=== PATIENT | female | born 1960 | race Caucasian/White ===

== ENCOUNTER 2021-01-19 07:10 | Day surgery (SDC) | payer OTHER, SELFPAY ==
--- NOTE | 2021-01-15 13:38 | P.CONAN_ITS ---
Documented by User: Angelique Garcia 01/15/21 13:39 HPI - Anesthesia Eval Consult details Narrative: 60yo F for Upper Endoscopy COUNT INCLUDES THE [facility] Past Medical History Medical History Barretts esophagus Complex regional pain syndrome i of right upper limb GERD (gastroesophageal reflux disease) Hiatal hernia RSD (reflex sympathetic dystrophy) Surgical History Surgical History History of appendectomy History of foot surgery History of surgery on left wrist Hx of section Hx of colonoscopy Hx of esophagogastroduodenoscopy Social History Social History Smoking Status: Former smoker Use of substances other than those prescribed or required for medical reasons: No Have you been hit, kicked, punched, or otherwise hurt by someone within the past year? If so, by whom?: No Advance Directives: No Advance Directives Information Provided: No Advance Directives on File: No Meds Allergies Allergy/AdvReac Type Severity Reaction Status Date / Time No Known Allergies Allergy Unverified 01/14/21 11:14 Home Medications Medication Instructions Recorded Confirmed Last Taken Type ascorbic acid (vitamin C) [Vitamin 500 mg PO DAILY 01/14/21 01/14/21 Unknown History C] glucosamine sulfate [Glucosamine] 500 mg PO DAILY 01/14/21 01/14/21 Unknown History ibuprofen 600 mg PO BEDTIME 01/14/21 01/14/21 Unknown History omeprazole 1 cap PO DAILY 01/14/21 01/14/21 01/19/21 History Exam Exam Date and Time: January 15, 2021 147 Assessment and Plan Assessment Anesthesia Assessment: Chart Reviewed Documented by User: Damian De Anda 01/19/21 08:08 COUNT INCLUDES THE [facility] Past Medical History Medical History Barretts esophagus Complex regional pain syndrome i of right upper limb GERD (gastroesophageal reflux disease) Hiatal hernia RSD (reflex sympathetic dystrophy) Surgical History Surgical History History of appendectomy History of foot surgery History of surgery on left wrist Hx of section Hx of colonoscopy Hx of esophagogastroduodenoscopy Social History Social History Smoking Status: Former smoker Use of substances other than those prescribed or required for medical reasons: No Have you been hit, kicked, punched, or otherwise hurt by someone within the past year? If so, by whom?: No Advance Directives: No Advance Directives Information Provided: No Advance Directives on File: No Meds Allergies Allergy/AdvReac Type Severity Reaction Status Date / Time No Known Allergies Allergy Unverified 01/14/21 11:14 Home Medications Medication Instructions Recorded Confirmed Last Taken Type ascorbic acid (vitamin C) [Vitamin 500 mg PO DAILY 01/14/21 01/14/21 Unknown History C] glucosamine sulfate [Glucosamine] 500 mg PO DAILY 01/14/21 01/14/21 Unknown H istory ibuprofen 600 mg PO BEDTIME 01/14/21 01/14/21 Unknown History omeprazole 1 cap PO DAILY 01/14/21 01/14/21 01/19/21 History Exam Airway Mallampati Class: II TM Dist: >3cm Neck ROM: Full Loose/Missing/Broken Teeth: No Heart: [id number] Lungs: cta b/l Assessment and Plan Assessment Anesthesia Assessment: Anesthesia Plan Discussed, PAT Visit and Chart Reviewed Final Anesthetic Review NPO: Yes ASA Class: II Final Preanesthetic Review: No Changes in Pt Med Stat, Meds/Allgs Chart Reviewed and Consent Obtained/Reviewed Patient Risk: Low Procedure Risk: Low Assessment/Block/Sedation in SS: Assess/Block/Sedation-SS Anesthetic Plan Anesthetic Plan: MAC: and Agree w/ Assess. and Plan Disposition: Standard PACU
[2021-01-19 06:59] VITALS: BMI 24.7
[2021-01-19 07:21] VITALS: BP 136/70; PULSE 48; RESP 18; TEMP 36.1; O2SAT 98
[2021-01-19] MEDS: Lactated Ringers 1,000 ML 100 ML IVCONT (08:03)
--- NOTE | 2021-01-19 09:01 | PM.OP ---
Brief Operative Note Date of Service: 01/19/21 Pre-op diagnosis: Zacarias's esophagus Post-op diagnosis: other (Hiatal hernia, Duodenal polyp) Surgeon: Orestes Berger Anesthesia: MAC Was an Director Educational Radio used for this Procedure?: No Estimated blood loss (mL): 3.0 Pathology: other (A. Duodenal bulb polyp B. EG Junction at 35cm) Condition: stable Disposition: PACU
[2021-01-19 09:10] VITALS: BP 100/61; PULSE 57; RESP 16; TEMP 36.3; O2SAT 97
[2021-01-19 09:25] VITALS: BP 124/70; PULSE 53; RESP 16; TEMP 36.3; O2SAT 99
--- NOTE | 2021-01-19 10:59 | OP_ITS ---
SURGEON: Orestes Berger MD INDICATIONS: The patient presents for evaluation of gastroesophageal reflux and history of Zacarias's esophagus. Full consent has been obtained from her for this, including risks of bleeding and perforation. PREOPERATIVE DIAGNOSIS: History of Zacarias's esophagus. POSTOPERATIVE DIAGNOSIS: PROCEDURE PERFORMED: Esophagogastroduodenoscopy with biopsies. ESTIMATED BLOOD LOSS: COMPLICATIONS: ANESTHESIA: Monitored anesthesia care. ASSISTANTS: SPECIMENS: POSTOPERATIVE DIAGNOSES: History of Zacarias's esophagus, hiatal hernia, duodenal bulb polyp. DESCRIPTION OF PROCEDURE: The patient was placed in the left lateral decubitus position. The Olympus video gastroscope was passed in the posterior oropharynx and upper esophagus under direct vision. The scope was passed slowly into the distal esophagus. The gastroesophageal junction appeared at 35 cm. There was a very minimal irregularity consistent with reflux and possibly small areas of Zacarias's mucosa. There was no esophagitis nor any lesions. The scope entered into the stomach. There was a small to moderate sized hiatal hernia. The hiatal hernia mucosa appeared normal. The scope was advanced to pylorus and duodenum was cannulated to the descending portion. The duodenum including the bulb was carefully inspected. In the duodenal bulb on the posterior wall, was what appeared to be a flat, but raised approximately 15 mm polypoid area that I suspect represented either gastric heterotopia or Pina's gland hypertrophy. There was no ulceration. Biopsies were obtained. The scope was withdrawn back into the stomach. The gastric antrum and body appeared normal with good peristalsis. Scope was retroflexed visualizing the proximal stomach carefully, which appeared normal, without any sign of mass or ulceration. The scope was straightened and withdrawn back into the esophagus. I obtained biopsies at the EG junction at 35 cm. Proximal to this, the esophageal mucosa appeared normal. The scope was withdrawn from the patient. She tolerated the procedure well and was returned to the recovery area in stable condition. IMPRESSION: 1. Hiatal hernia, history of Zacarias's esophagus. 2. Duodenal bulb polyp. PLAN: The results of the biopsies will be checked. She was advised to continue daily omeprazole. She was advised not to use any aspirin and NSAIDs for 1 week. MD SAMANTHA Reaves/JHONATHAN / [id number]
== END 2021-01-19 10:05 | disposition home or self-care (01) ==
PROVIDERS: PCP Internal Medicine; Visit Provider Internal Medicine
PROC: 0DJ08ZZ Inspection of Upper Intestinal Tract, Via Natural or Artificial Opening Endoscopic (ICD-10-PCS; CPT 43235; principal; 2021-01-19 08:20)
DX: K21.9 Gastro-esophageal reflux disease without esophagitis (principal); K22.70 Barrett's esophagus without dysplasia; K31.7 Polyp of stomach and duodenum; K44.9 Diaphragmatic hernia without obstruction or gangrene; G90.511 Complex regional pain syndrome I of right upper limb; Z87.891 Personal history of nicotine dependence; Z79.899 Other long term (current) drug therapy
CPT/HCPCS: 43239; 88305; J3010

== ENCOUNTER 2021-01-20 08:00 | Outpatient (REF) | payer OTHER, SELFPAY ==
--- NOTE | ~2021-01-20 | US_ITS ---
EXAMINATION: US THYROID CLINICAL INFORMATION: Nontoxic single thyroid nodule. COMPARISON: Ultrasound soft tissue head/neck thyroid dated 02/19/2019. TECHNIQUE: Linear transducer grayscale and color Doppler examination with attention to the region of the thyroid. FINDINGS: SIZE: Measurements of the thyroid lobes and nodules are given in sagittal, anteroposterior and transverse dimensions respectively. Right Thyroid Lobe: 4.2 x 1.7 x 1.6 cm, volume 5.7 mL. Previously 4.1 x 1.7 x 1.7 cm, volume 6.0 mL. Parenchyma: The gland echotexture is homogeneous. Thyroid vascularity is increased. Left Thyroid Lobe: 3.4 x 1.4 x 1.3 cm, volume 3.3 mL. Previously 3.7 x 1.5 x 1.4 cm, volume 4.1 mL. Parenchyma: The gland echotexture is homogeneous. Thyroid vascularity is increased. Isthmus: 0.2 cm in maximum AP dimension. Previously 0.3 cm. Estimated total number of nodules greater than or equal to 1 cm: 1. Case Liner nodules are described as follows: 1. Location: Right. Size: 1.0 x 0.8 x 0.8 cm, volume 0.38 mL. Previously: 1.0 x 0.9 x 0.8 cm, volume 0.37 mL. Nodule characteristics: Composition: Solid (2). Echogenicity: Hypoechoic (2). Shape: Not taller than wide (0). Margins: Smooth (0). Echogenic Foci: None (0). ACR TI-RADS total points: 4 ACR TI-RADS category: 4 Significant change in size (>/= 20% in 2 dimensions and minimal increase of 2 mm or 50% or greater increase in volume): None Change in features: None Change in ACR TI-RADS risk category: Not applicable 2. Location: Left. Size: 0.3 x 0.4 x 0.3 cm, volume 0.02 mL. Previously: 0.3 x 0.3 x 0.2 cm, volume 0.01 mL. Nodule characteristics: Composition: Solid (2). Echogenicity: Hyperechoic (1). Shape: Not taller than wide (0). Margins: Smooth (0). Echogenic Foci: None (0). ACR TI-RADS total points: 3 ACR TI-RADS category: 3 Significant change in size (>/= 20% in 2 dimensions and minimal increase of 2 mm or 50% or greater increase in volume): None Change in features: None Change in ACR TI-RADS risk category: Not applicable NODES: No lymphadenopathy is seen in the tissue surrounding the thyroid gland. US/US thyroid IMPRESSION: Bilateral thyroid nodules. The 1 cm larger solid nodule in the right mid pole is stable. Recommend continued follow up. ACR TI-RADS RECOMMENDATION REFERENCE: Ultrasound-guided fine-needle aspiration, followup ultrasound, no further follow up. * TR1 (0 point) and TR 2 (2 points): No FNA or follow up * TR3 (3 points): FNA if more than or equal to 2.5 cm in maximum dimension, followup ultrasound in 1, 3 and 5 years if 1.5 to 2.4 cm in maximum dimension. * TR4 (4-6 points): FNA if more than or equal to 1.5 cm in maximum dimension, followup ultrasound in 1, 2, 3 and 5 years if 1 to 1.4 cm in maximum dimension. * TR5 (more than or equal to 7 points): FNA if more than or equal to 1 cm in maximum dimension, followup ultrasound every year for 5 years if 0.5 to 0.9 cm in maximum dimension. * TR3, TR4 or TR5 nodules that are below the size threshold for follow up receive no follow up.
== END 2021-01-20 08:01 | disposition home or self-care (01) ==
LOC: HO.US 08:00
PROVIDERS: PCP Internal Medicine; Visit Provider Physician Assistant
DX: E04.1 Nontoxic single thyroid nodule (principal)
CPT/HCPCS: 76536

== ENCOUNTER → 2021-03-16 09:29 | Outpatient (BNVA) | payer OTHER, SELFPAY | PROVIDERS: PCP Internal Medicine; Visit Provider Internal Medicine ==

== ENCOUNTER 2021-04-03 07:49 | Outpatient (REF) | payer OTHER, SELFPAY ==
[2021-04-03 09:28] LABS: Albumin Level 4.2 g/dL (3.5-5.0); Calcium 9.4 mg/dL (8.4-10.2); Phosphorus 3.6 mg/dL (2.7-4.5)
[2021-04-03 09:53] LABS: Free T4 (Free Thyroxine) 0.89 ng/dL (0.71-1.85); Thyroid Stimulating Hormone 1.06 uIU/mL (0.32-4.0); Vitamin D 25-OH Total 30.5 ng/mL (>30)
[2021-04-06 15:11] LABS: Calcium (PTHI) 9.1 mg/dL (8.6-10.4); PTHI 38 pg/mL (14-64)
== END 2021-04-03 07:50 | disposition home or self-care (01) ==
LOC: HO.LAB 07:49
PROVIDERS: PCP Internal Medicine; Visit Provider Internal Medicine
DX: E55.9 Vitamin D deficiency, unspecified (principal); E04.2 Nontoxic multinodular goiter
CPT/HCPCS: 36415; 82040; 82306; 82310; 83970; 84100; 84439; 84443

== ENCOUNTER 2021-06-04 07:46 | Outpatient (REF) | payer OTHER, SELFPAY ==
--- NOTE | 2021-06-04 08:50 | PM.OP ---
Brief Operative Note Date of Service: 06/04/21 Pre-op diagnosis: Multinodular Thyroid Procedure: This is doctor Santa Soliz. This is an ultrasound-guided fine-needle aspiration report. Date of Examination: 06/04/2021 Indication: Multinodular Thyroid Porcedure: Procedure was explained to the patient. Alternatives, the risk and benefits were discussed. Written consent was obtained. A time-out was also obtained. After sterile preparation, fine-needle aspiration of a 1.0 cm right mid pole thyroid nodule was performed using direct ultrasound guidance to confirm accurate needle placement. Six aspirations were made using 27 gauge needles. Samples were submitted for cytology. 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 The patient tolerated the procedure well. Aftercare instructions were provided. Impression: Uncomplicated fine needle aspiration biopsy of a 1.0 cm right mid pole thyroid nodule under ultrasound guidance. Surgeon: Santa Soliz, DO Was an Preparing Box Tender used for this Procedure?: No Estimated blood loss (mL): 0
== END 2021-06-04 07:47 | disposition home or self-care (01) ==
LOC: HO.US 07:46
PROVIDERS: Visit Provider Internal Medicine
DX: E04.2 Nontoxic multinodular goiter (principal)
CPT/HCPCS: 10005; 88172; 88173; 88177

== ENCOUNTER → 2021-06-18 09:45 | Outpatient (BNVA) | payer OTHER, SELFPAY | PROVIDERS: PCP Internal Medicine; Visit Provider Internal Medicine ==

== ENCOUNTER 2021-10-09 07:43 | Outpatient (REF) | payer OTHER, SELFPAY ==
--- NOTE | ~2021-10-09 | US_ITS ---
EXAMINATION: US RETROPERITONEAL LIMITED (AORTA) CLINICAL INFORMATION: AAA. COMPARISON: None TECHNIQUE: Callahan-scale, color Doppler and spectral Doppler evaluation of the abdominal aorta. FINDINGS: The aorta is normal. The measurements of the aorta in maximum AP and transverse dimensions respectively are as follows: Proximal: 2.9 x 2.4 cm. Mid: 2.1 x 2.2 cm. Distal: 1.8 x 1.9 cm. PSV: 80.1 cm/s. The measurements of the common iliac arteries in maximum AP and TRV dimensions are as follows: Right Common Iliac Artery: 1.2 x 1.0 cm. Left Common Iliac Artery: 1.2 x 1.1 cm. US/US abdominal aortic aneurysm IMPRESSION: No aneurysmal dilatation of abdominal aorta.
== END 2021-10-09 07:44 | disposition home or self-care (01) ==
LOC: HO.US 07:43
PROVIDERS: Visit Provider Physician Assistant
DX: Z13.6 Encounter for screening for cardiovascular disorders (principal); Z82.49 Family history of ischemic heart disease and other diseases of the circulatory system
CPT/HCPCS: 76706

== ENCOUNTER 2022-06-30 13:49 | Outpatient (REF) | payer OTHER, SELFPAY ==
--- NOTE | ~2022-06-30 | US_ITS ---
EXAMINATION: US THYROID CLINICAL INFORMATION: Nontoxic multinodular goiter. COMPARISON: Ultrasound thyroid 01/20/2021 and 02/19/2019. US-guided thyroid biopsy 06/04/2021. TECHNIQUE: Linear transducer grayscale and color Doppler examination with attention to the region of the thyroid. FINDINGS: SIZE: Measurements of the thyroid lobes and nodules are given in sagittal, anteroposterior and transverse dimensions respectively. Right Thyroid Lobe: 3.7 x 1.5 x 1.6 cm, volume 4.6 mL. Previously 4.2 x 1.7 x 1.6 cm, volume 5.7 mL. Parenchyma: The gland echotexture is homogeneous. Thyroid vascularity is increased. Left Thyroid Lobe: 3.6 x 1.4 x 1.3 cm, volume 3.4 mL. Previously 3.4 x 1.4 x 1.3 cm, volume 3.3 mL. Parenchyma: The gland echotexture is homogeneous. Thyroid vascularity is increased. Isthmus: 0.3 cm in maximum AP dimension. Previously 0.2 cm. Estimated total number of nodules greater than or equal to 1 cm: 1. Solid Tire Tuber Machine Operator nodules are described as follows: 1. Location: Right mid. Size: 1.0 x 0.8 x 0.8 cm, volume 0.3 mL. Previously: 1.0 x 0.8 x 0.8 cm, volume 0.38 mL. Nodule characteristics: Composition: Solid (2). Echogenicity: Isoechoic (1). Shape: Not taller than wide (0). Margins: Smooth (0). Echogenic Foci: Macrocalcifications (1). ACR TI-RADS total points: 4. Previous: 4. ACR TI-RADS category: 4. Previous: 4. Significant change in size (>/= 20% in 2 dimensions and minimal increase of 2 mm or 50% or greater increase in volume): None. Change in features: None. Change in ACR TI-RADS risk category: None. 2. Location: Left inferior. Size: 0.4 x 0.3 x 0.2 cm, volume 0.02 mL. Previously: 0.3 x 0.4 x 0.3 cm, volume 0.02 mL. Nodule characteristics: Composition: Solid (2). Echogenicity: Hyperechoic (1). Shape: Not taller than wide (0). Margins: Smooth (0). Echogenic Foci: None (0). ACR TI-RADS total points: 3. Previous: 3. ACR TI-RADS category: 3. Previous: 3. Significant change in size (>/= 20% in 2 dimensions and minimal increase of 2 mm or 50% or greater increase in volume): None. Change in features: None. Change in ACR TI-RADS risk category: None. 3. Location: Right mid. Size: 0.6 x 0.5 x 0.3 cm, volume 0.04 mL. Previously: Not seen on the previous study. Nodule characteristics: Composition: Solid (2). Echogenicity: Hypoechoic (2). Shape: Not taller than wide (0). Margins: Ill-defined (0). Echogenic Foci: None (0). ACR TI-RADS total points: 4. ACR TI-RADS category: 4. NODES: No lymphadenopathy is seen in the tissue surrounding the thyroid gland. US/US thyroid IMPRESSION: Slightly hypervascular nonenlarged thyroid gland. There are subcentimeter nonsuspicious nodules in both lobes. ACR TI-RADS RECOMMENDATION REFERENCE: Ultrasound-guided fine-needle aspiration, followup ultrasound, no further follow up. * TR1 (0 point) and TR 2 (2 points): No FNA or follow up. * TR3 (3 points): FNA if more than or equal to 2.5 cm in maximum dimension, followup ultrasound in 1, 3 and 5 years if 1.5 to 2.4 cm in maximum dimension. * TR4 (4-6 points): FNA if more than or equal to 1.5 cm in maximum dimension, followup ultrasound in 1, 2, 3 and 5 years if 1 to 1.4 cm in maximum dimension. * TR5 (more than or equal to 7 points): FNA if more than or equal to 1 cm in maximum dimension, followup ultrasound every year for 5 years if 0.5 to 0.9 cm in maximum dimension. * TR3, TR4 or TR5 nodules that are below the size threshold for followup receive no follow up.
== END 2022-06-30 13:50 | disposition home or self-care (01) ==
LOC: HO.US 13:49
PROVIDERS: PCP Internal Medicine; Visit Provider Internal Medicine
DX: E04.2 Nontoxic multinodular goiter (principal)
CPT/HCPCS: 76536

== ENCOUNTER 2022-08-24 15:06 | Outpatient (REF) | payer OTHER, SELFPAY ==
[2022-08-24 17:27] LABS: Free T4 (Free Thyroxine) 0.95 ng/dL (0.71-1.85); Thyroid Stimulating Hormone 1.15 uIU/mL (0.32-4.0)
== END 2022-08-24 15:07 | disposition home or self-care (01) ==
LOC: HO.LAB 15:06
PROVIDERS: PCP Internal Medicine; Visit Provider Internal Medicine
DX: E04.2 Nontoxic multinodular goiter (principal)
CPT/HCPCS: 36415; 84439; 84443

== ENCOUNTER 2023-12-30 15:54 | Outpatient (REF) | payer MEDICARE, OTHER, SELFPAY ==
--- NOTE | ~2023-12-30 | US_ITS ---
EXAMINATION: US THYROID CLINICAL INFORMATION: Nontoxic multinodular goiter. COMPARISON: Ultrasound soft tissue head/neck thyroid dated 06/30/2022 and 01/20/2021. TECHNIQUE: Linear transducer grayscale and color Doppler examination with attention to the region of the thyroid. FINDINGS: SIZE: Measurements of the thyroid lobes and nodules are given in sagittal, anteroposterior and transverse dimensions respectively. Right Thyroid Lobe: 4.2 x 1.5 x 1.6 cm, volume 5.2 mL. Previously 3.7 x 1.5 x 1.6 cm, volume 4.6 mL. Parenchyma: The gland echotexture is homogeneous. Thyroid vascularity is normal. Left Thyroid Lobe: 3.1 x 1.0 x 1.6 cm, volume 2.5 mL. Previously 3.6 x 1.4 x 1.3 cm, volume mL. Parenchyma: The gland echotexture is homogeneous. Thyroid vascularity is normal. Isthmus: 0.2 cm in maximum AP dimension. Previously 0.3 cm. Estimated total number of nodules greater than or equal to 1 cm: 1. Data Entry Machine Operator nodules are described as follows: 1. Location: Right mid. Size: 1.0 x 0.8 x 0.8 cm, volume 0.3 mL. Previously: 1.0 x 0.8 x 0.8 cm, volume 0.3 mL. Nodule characteristics: Composition: Solid (2). Echogenicity: Hypoechoic (2). Shape: Not taller than wide (0). Margins: Smooth (0). Echogenic Foci: Peripheral calcifications (2). ACR TI-RADS total points: 6 Previous: 4 ACR TI-RADS category: 4 Previous: 4 Significant change in size (>/= 20% in 2 dimensions and minimal increase of 2 mm or 50% or greater increase in volume): No Change in features: No Change in ACR TI-RADS risk category: No 2. Location: Right mid. Size: 0.5 x 0.3 x 0.5 cm, volume 0.04 mL. Previously: 0.6 x 0.5 x 0.3 cm, volume 0.04 mL. Nodule characteristics: Composition: Solid (2). Echogenicity: Hypoechoic (2). Shape: Not taller than wide (0). Margins: Ill-defined (0). Echogenic Foci: None (0). ACR TI-RADS total points: 4 Previous: 4 ACR TI-RADS category: 4 Previous: 4 Significant change in size (>/= 20% in 2 dimensions and minimal increase of 2 mm or 50% or greater increase in volume): No Change in features: No Change in ACR TI-RADS risk category: No 3. Location: Left. Size: 0.4 x 0.4 x 0.4 cm, volume 0.03 mL. Previously: 0.4 x 0.3 x 0.2 cm, volume 0.02 mL. Nodule characteristics: Composition: Solid (2). Echogenicity: Isoechoic (1). Shape: Not taller than wide (0). Margins: Smooth (0). Echogenic Foci: None (0). ACR TI-RADS total points: 3 Previous: 3 ACR TI-RADS category: 3 Previous: 3 Significant change in size (>/= 20% in 2 dimensions and minimal increase of 2 mm or 50% or greater increase in volume): No Change in features: No Change in ACR TI-RADS risk category: No NODES: No lymphadenopathy is seen in the tissue surrounding the thyroid gland. US/US thyroid IMPRESSION: Right Midpole 1.0 centimeter TI-RADS 4 nodule. Per ACR criteria given size greater than 1 cm, annual follow-up is recommended at 1, 2, 3, and 5 years from date of baseline exam.. ACR TI-RADS RECOMMENDATION REFERENCE: Ultrasound-guided fine-needle aspiration, follow up ultrasound, no further followup. * TR1 (0 point) and TR2 (2 points): No FNA or followup * TR3 (3 points): FNA if more than or equal to 2.5 cm in maximum dimension, follow up ultrasound in 1, 3 and 5 years if 1.5 to 2.4 cm in maximum dimension. * TR4 (4-6 points): FNA if more than or equal to 1.5 cm in maximum dimension, follow up ultrasound in 1, 2, 3 and 5 years if 1 to 1.4 cm in maximum dimension. * TR5 (more than or equal to 7 points): FNA if more than or equal to 1 cm in maximum dimension, follow up ultrasound every year for 5 years if 0.5 to 0.9 cm in maximum dimension. * TR3, TR4 or TR5 nodules that are below the size threshold for follow up receive no followup.
== END 2023-12-30 15:55 | disposition home or self-care (01) ==
LOC: HO.US 15:54
PROVIDERS: PCP Internal Medicine; Visit Provider Internal Medicine Endocrinology, Diabetes & Metabolism
DX: E04.2 Nontoxic multinodular goiter (principal)
CPT/HCPCS: 76536

== ENCOUNTER 2024-02-07 09:52 | Outpatient (AMB) | payer MEDICARE, OTHER, SELFPAY ==
--- NOTE | 2024-02-07 09:53 | A.OFFVIS_ITS ---
Vital Signs 02/07/24 09:55 Height 5 ft 2 in Weight 125 lb 0.034 oz BMI 22.9 BP 148/90 H Blood Pressure Location Lt brachial Position Sitting Pulse 59 Pulse Source Pulse Oximeter Intake Visit Reasons: F/U NTMNG/JAVIER PATIENT Intake Note: Patient presents today for NTMNG follow up, last seen by Dr. Bender on 08/26/2022. Accounts Collector Required: No Accompanied by: Self / Same As Patient Allergies No Known Allergies Allergy (Verified 02/07/24 09:58) Medication List - Last Reconciled 02/07/24 by Orestes Marino MD ascorbic acid (vitamin C) (Vitamin C) 500 mg PO DAILY glucosamine sulfate (Glucosamine) 500 mg PO DAILY omeprazole 1 cap PO DAILY HPI Comments Details: 63 YO F with no significant PMHx who is seen in F/U for a multinodular thyroid. The patient last saw Dr. Bender on 08/26/2022 Was initially diagnosed with multinodular thyroid in 2017 with thyroid US revealing a solitary R lobe nodule. She underwent FNA biopsy of her RMP 1.0 cm thyroid nodule 06/04/2021, with benign cytology. Currently denies any compressive symptoms. She also denies any symptoms of hyper or hypothyroidism Denies any history of head or neck irradiation. Denies any family history of thyroid cancer. Thyroid US: 06/30/2022 Right Thyroid Lobe: 3.7 x 1.5 x 1.6 cm, volume 4.6 mL. Previously 4.2 x 1.7 x 1.6 cm, volume 5.7 mL. Parenchyma: The gland echotexture is homogeneous. Thyroid vascularity is increased. Left Thyroid Lobe: 3.6 x 1.4 x 1.3 cm, volume 3.4 mL. Previously 3.4 x 1.4 x 1.3 cm, volume 3.3 mL. Parenchyma: The gland echotexture is homogeneous. Thyroid vascularity is increased. Isthmus: 0.3 cm in maximum AP dimension. Previously 0.2 cm. Estimated total number of nodules greater than or equal to 1 cm: 1. Regional Driver nodules are described as follows: 1.? Location: Right mid. ?? ? Size: 1.0 x 0.8 x 0.8 cm, volume 0.3 mL. ?? ? Previously: 1.0 x 0.8 x 0.8 cm, volume 0.38 mL. ?? ? Nodule characteristics: ?? ? Composition: Solid (2). ?? ? Echogenicity: Isoechoic (1). ?? ? Shape: Not taller than wide (0). ?? ? Margins: Smooth (0). ?? ? Echogenic Foci: Macrocalcifications (1). ? ACR TI-RADS total points: 4. Previous: 4. ?? ? ACR TI-RADS category: 4. Previous: 4. ? Significant change in size (>/= 20% in 2 dimensions and minimal increase of 2 mm or 50% or greater increase in volume): None. ?? ? Change in features: None. ?? ? Change in ACR TI-RADS risk category: None. 2.? Location: Left inferior. ?? ? Size: 0.4 x 0.3 x 0.2 cm, volume 0.02 mL. ?? ? Previously: 0.3 x 0.4 x 0.3 cm, volume 0.02 mL. ?? ? Nodule characteristics: ?? ? Composition: Solid (2). ?? ? Echogenicity: Hyperechoic (1). ?? ? Shape: Not taller than wide (0). ?? ? Margins: Smooth (0). ?? ? Echogenic Foci: None (0).? ACR TI-RADS total points: 3. Previous: 3. ?? ? ACR TI-RADS category: 3. Previous: 3. ? Significant change in size (>/= 20% in 2 dimensions and minimal increase of 2 mm or 50% or greater increase in volume): None. ?? ? Change in features: None. ?? ? Change in ACR TI-RADS risk category: None. 3.? Location: Right mid. ?? ? Size: 0.6 x 0.5 x 0.3 cm, volume 0.04 mL. ?? ? Previously: Not seen on the previous study. ?? ? Nodule characteristics: ?? ? Composition: Solid (2). ?? ? Echogenicity: Hypoechoic (2). ?? ? Shape: Not taller than wide (0). ?? ? Margins: Ill-defined (0). ?? ? Echogenic Foci: None (0). ? ACR TI-RADS total points: 4. ?? ? ACR TI-RADS category: 4. NODES: No lymphadenopathy is seen in the tissue surrounding the thyroid gland. Labs: Laboratory Tests 08/24/22 15:20 TSH 1.15 Free T4 0.95 recent thyroid ultrasound showed no change in the size of the nodules [facility] Medical History Barretts esophagus Complex regional pain syndrome i of right upper limb GERD (gastroesophageal reflux disease) Hiatal hernia Multinodular thyroid RSD (reflex sympathetic dystrophy) Vitamin D deficiency Surgical History Hx of section History of appendectomy History of foot surgery History of surgery on left wrist Hx of esophagogastroduodenoscopy Hx of colonoscopy Family History Mother COPD (chronic obstructive pulmonary disease) Lung cancer Father Dementia Social History Alcohol intake: former Patient Tobacco Use Status: Former Tobacco user Tobacco use type: Cigarette Cigarette Packs Per Day: 1 Years Smoked: 20 Physical Exam Vital Signs: Last Vital Signs Pulse 59 02/07/24 09:55 BP 148/90 H 02/07/24 09:55 BMI result Body Mass Index 22.9 Const Other: Thyroid gland is normal size weighs about 15 g. There are no palpable thyroid nodules Assessment & Plan Assessment & Plan (1) Multinodular thyroid: Code(s): E04.2 - Nontoxic multinodular goiter Category: Medical Plan: This 63-year-old white female with a history of multinodular gland with a dominant right thyroid nodule status post FNA with benign cytology. She appears to be clinically euthyroid. Plan is to check TSH and free T4. Assuming above is normal, patient returned to the care of her primary care provider who can check another thyroid ultrasound about 2-3 years time. If there is any significant change in the size or characteristics of the nodules, the patient returned back to endocrinology Orders: Orders Free T4 (Free Thyroxine) Today E04.2 - Nontoxic multinodular goiter Thyroid Stimulating Hormone Today E04.2 - Nontoxic multinodular goiter Coding Level of Care Code Est Pt Level 3 (50614) Diagnoses Multinodular thyroid E04.2
[2024-02-07 09:55] VITALS: BP 148/90; PULSE 59; BMI 22.9
== END 2024-02-07 10:18 | disposition home or self-care (01) ==
PROVIDERS: PCP Internal Medicine; Visit Provider Internal Medicine Endocrinology, Diabetes & Metabolism
DX: E04.2 Nontoxic multinodular goiter (principal)
CPT/HCPCS: 99213

== ENCOUNTER → 2024-02-07 09:52 | Outpatient (BNVA) | payer OTHER, SELFPAY | PROVIDERS: PCP Internal Medicine; Visit Provider Internal Medicine Endocrinology, Diabetes & Metabolism ==

== ENCOUNTER 2024-04-13 09:30 | Day surgery (SDC) | payer MEDICARE, OTHER, SELFPAY ==
[2024-04-11 16:31] VITALS: BMI 22.9
[2024-04-13] MEDS: Lactated Ringers 1,000 ML 100 ML IVCONT (09:34)
[2024-04-13 09:38] VITALS: BMI 22.7
[2024-04-13 09:51] VITALS: BP 130/77; PULSE 55; RESP 18; TEMP 36.6; O2SAT 97
--- NOTE | 2024-04-13 09:55 | HO.ANESPROP2 ---
Documented by User: Angelique Garcia NP 04/12/24 09:31 HPI - Anesthesia Eval Consult details Narrative: 63yo F for Upper Endoscopy PMFSH Active Problems Active Problems: All Active Problems Vitamin D deficiency (Acute) Multinodular thyroid (Acute) Past Medical History Medical History Barretts esophagus Complex regional pain syndrome i of right upper limb GERD (gastroesophageal reflux disease) Hiatal hernia Multinodular thyroid RSD (reflex sympathetic dystrophy) Vitamin D deficiency Family History Family History Mother COPD (chronic obstructive pulmonary disease) Lung cancer Father Dementia Surgical History Surgical History Hx of section History of appendectomy History of foot surgery History of surgery on left wrist Hx of esophagogastroduodenoscopy Hx of colonoscopy Social History Social History Alcohol intake: former Patient Tobacco Use Status: Former Tobacco user Tobacco use type: Cigarette Cigarette Packs Per Day: 1 Years Smoked: 20 Are you DNR?: No Advance Directives: No Advance Directives Information Provided: Yes Nutrition Risks: No Nutritional Risk Meds Allergies Allergy/AdvReac Type Severity Reaction Status Date / Time No Known Allergies Allergy Verified 04/13/24 09:34 Home Medications ?Medication ?Instructions ?Recorded ?Confirmed ?Last Taken ?Type ascorbic acid (vitamin C) 500 mg 500 mg PO DAILY 01/14/21 04/13/24 Unknown History tablet (Vitamin C) glucosamine sulfate 500 mg tablet 500 mg PO DAILY 01/14/21 04/13/24 Unknown History (Glucosamine) omeprazole 20 mg capsule,delayed 1 cap PO DAILY 01/14/21 04/13/24 01/19/21 History release Exam Height,Weight and Vital Signs: Height 5 ft 2 in Weight 56.699 kg Assessment and Plan Assessment Anesthesia Assessment: Chart Reviewed Documented by User: Paige Saravia DO 04/13/24 09:58 PMF Past Medical History Medical History Barretts esophagus Complex regional pain syndrome i of right upper limb GERD (gastroesophageal reflux disease) Hiatal hernia Multinodular thyroid RSD (reflex sympathetic dystrophy) Vitamin D deficiency Family History Family History Mother COPD (chronic obstructive pulmonary disease) Lung cancer Father Dementia Family history of problems with anesthesia: No Surgical History Surgical History Hx of section History of appendectomy History of foot surgery History of surgery on left wrist Hx of esophagogastroduodenoscopy Hx of colonoscopy History of Problems with Anesthesia: No Social History Social History Alcohol intake: former Patient Tobacco Use Status: Former Tobacco user Tobacco use type: Cigarette Cigarette Packs Per Day: 1 Years Smoked: 20 Are you DNR?: No Advance Directives: No Advance Directives Information Provided: Yes Nutrition Risks: No Nutritional Risk Meds Allergies Allergy/AdvReac Type Severity Reaction Status Date / Time No Known Allergies Allergy Verified 04/13/24 09:34 Home Medications ?Medication ?Instructions ?Recorded ?Confirmed ?Last Taken ?Type ascorbic acid (vitamin C) 500 mg 500 mg PO DAILY 01/14/21 04/13/24 Unknown History tablet (Vitamin C) glucosamine sulfate 500 mg tablet 500 mg PO DAILY 01/14/21 04/13/24 Unknown History (Glucosamine) omeprazole 20 mg capsule,delayed 1 cap PO DAILY 01/14/21 04/13/24 01/19/21 History release Exam Exam Date and Time: April 13, 2024 0957 Height,Weight and Vital Signs: Height 5 ft 2 in Weight 56.699 kg Vital Signs Temperature 97.9 F 04/13/24 09:51 Pulse Rate 55 04/13/24 09:51 Respiratory Rate 18 04/13/24 09:51 Blood Pressure 130/77 04/13/24 09:51 Pulse Oximetry 97 04/13/24 09:51 Oxygen Delivery Method Room Air 04/13/24 09:51 Temperature 97.9 F 04/13/24 09:51 Pulse Rate 55 04/13/24 09:51 Respiratory Rate 18 04/13/24 09:51 Blood Pressure 130/77 04/13/24 09:51 Pulse Oximetry 97 04/13/24 09:51 Oxygen Delivery Method Room Air 04/13/24 09:51 Airway Mallampati Class: I TM Dist: >3cm Neck ROM: Full Loose/Missing/Broken Teeth: No (Patient denies any loose or broken teeth) Heart: S1S2 Lungs: CTAB Assessment and Plan Assessment Anesthesia Assessment: Anesthesia Plan Discussed and Chart Reviewed Final Anesthetic Review Family History of Problems with Anesthesia: No History of Problems with Anesthesia: No NPO: Yes ASA Class: II Final Preanesthetic Review: No Changes in Pt Med Stat, Meds/Allgs Chart Reviewed, Consent Obtained/Reviewed and Anes Risks/Benef Reviewed Patient Risk: Low Procedure Risk: Low Anesthetic Plan Anesthetic Plan: MAC: and Agree w/ Assess. and Plan Disposition: Standard PACU
[2024-04-13 10:34] VITALS: BP 88/46; PULSE 75; RESP 16; TEMP 36.3; O2SAT 96
--- NOTE | 2024-04-13 10:36 | PM.OP ---
Brief Operative Note Date of Service: 04/13/24 Pre-op diagnosis: Zacarias's Esophagus Post-op diagnosis: other (Same, Hiatal hernia) Procedure: EGD with biopsies Surgeon: Orestes Berger MD Anesthesia: MAC Was an Finance Specialist used for this Procedure?: No Estimated blood loss (mL): 2.0 Pathology: other (A. EG Junction at 35cm) Condition: stable Disposition: PACU
[2024-04-13 10:49] VITALS: BP 99/62; PULSE 66; RESP 16; O2SAT 97
[2024-04-13 11:04] VITALS: BP 108/62; PULSE 66; RESP 16; TEMP 36.3; O2SAT 98
--- NOTE | 2024-04-13 11:07 | PC.NURSE ---
24hr update documented on paper
--- NOTE | 2024-04-13 11:14 | OP_ITS ---
DATE OF SERVICE: 04/13/2024 SURGEON: Orestes Berger MD INDICATIONS: The patient presents for evaluation of gastroesophageal reflux and history of Zacarias esophagus. Full consent was obtained from her for this, including risks of bleeding and perforation. PREOPERATIVE DIAGNOSIS: POSTOPERATIVE DIAGNOSIS: PROCEDURE PERFORMED: Esophagogastroduodenoscopy with biopsies. ESTIMATED BLOOD LOSS: COMPLICATIONS: ANESTHESIA: Monitored anesthesia care. ASSISTANTS: SPECIMENS: PREOPERATIVE DIAGNOSES: Gastroesophageal reflux and Zacarias esophagus. POSTOPERATIVE DIAGNOSES: Gastroesophageal reflux and Zacarias esophagus, small hiatal hernia, rule out dysplasia. DESCRIPTION OF PROCEDURE: The patient was placed in the left lateral decubitus position. The Olympus video gastroscope was passed in the posterior oropharynx and upper esophagus under direct vision. The scope was passed slowly into the distal esophagus. The gastroesophageal junction appeared at 35 cm. There was some slight irregularity, consistent with some less than 1 cm areas of Zacarias mucosa. There was no esophagitis nor any overlying lesions. The scope entered the stomach. There was a small hiatal hernia. The scope was advanced to the pylorus and the duodenum was cannulated to the descending portion. The duodenum including the bulb appeared normal without mass or ulceration. The scope was withdrawn back in the stomach. The gastric antrum and body appeared normal with good peristalsis. The scope was retroflexed, visualizing the proximal stomach carefully, which appeared normal, without any sign of mass or ulceration. The scope was straightened and withdrawn back into the esophagus. Multiple biopsies were obtained at the level of the EG junction at 35 cm. Proximal to this, the esophageal mucosa appeared normal. The scope was withdrawn from the patient. She tolerated the procedure well and was returned to the recovery area in stable condition. IMPRESSION: Gastroesophageal reflux, hiatal hernia, history of Zacarias esophagus, rule out dysplasia. PLAN: The patient will continue her daily omeprazole. I would recommend a repeat upper endoscopy in 3 years for further surveillance when she has her next screening colonoscopy. She will otherwise see me on a p.r.n. basis. MD SAMANTHA Reaves/JHONATHAN / [id number]
== END 2024-04-13 11:38 | disposition home or self-care (01) ==
PROVIDERS: PCP Physician Assistant; Visit Provider Internal Medicine
PROC: 0DJ08ZZ Inspection of Upper Intestinal Tract, Via Natural or Artificial Opening Endoscopic (ICD-10-PCS; CPT 43235; principal; 2024-04-13 10:30)
DX: K22.70 Barrett's esophagus without dysplasia (principal); K21.9 Gastro-esophageal reflux disease without esophagitis; K44.9 Diaphragmatic hernia without obstruction or gangrene; E55.9 Vitamin D deficiency, unspecified; E04.2 Nontoxic multinodular goiter; Z79.899 Other long term (current) drug therapy; Z98.890 Other specified postprocedural states; Z87.891 Personal history of nicotine dependence
CPT/HCPCS: 43239; 88305; J1596; J2704